=== PATIENT | male | born 1955 | race Caucasian/White ===

== ENCOUNTER 2018-06-12 06:59 | Day surgery (SDC) | payer BC ==
[~2018-06-12 06:59] MED LIST: AMLODIPINE10 MG PO; B COMPLE2 PO; LISINOPRIL10 MG PO; MAGNESIUM400 MG PO; MULTI VIT PO; OMEGA-3 KRILL500 MG PO; [UNRECOGNIZED DRUG - OTHER] PO
[2018-06-12] MEDS ORDERED: BL IBUPROFEN200 MG PO (10:50)
[2018-06-12] MEDS ORDERED: PERCOCET 5/325M1 TAB PO (10:50)
[2018-06-12 11:49] VITALS: BP 118/70
== END 2018-06-12 11:45 | disposition home or self-care (01) | DRG 352 ==
LOC: ORM 06:59
PROVIDERS: ATTEND Surgery
PROC: 0YUA0JZ Supplement Bilateral Inguinal Region with Synthetic Substitute, Open Approach (ICD-10-PCS; principal; 2018-06-12)
PROC: 0VBG0ZZ Excision of Left Spermatic Cord, Open Approach (ICD-10-PCS; 2018-06-12)
DX: K40.20 Bilateral inguinal hernia, without obstruction or gangrene, not specified as recurrent (principal); D17.6 Benign lipomatous neoplasm of spermatic cord; I10 Essential (primary) hypertension
CPT/HCPCS: C9290; J0131

== ENCOUNTER 2022-01-30 07:12 | Day surgery (SDC) | payer MEDICARE ==
[~2022-01-30] VITALS: Ht 182.9 cm; Wt 99.8 kg
[~2022-01-30 07:12] MED LIST changes: +BL IBUPROFEN200 MG PO; +HYDRALAZINE10 M2 PO; +HYDRO PO; +PERCOCET 5/325M1 TAB PO; +VALSARTAN PO
[2022-01-30 09:45] VITALS: BP 160/99
== END 2022-01-30 09:40 | disposition home or self-care (01) ==
LOC: ENDO 07:12
PROVIDERS: ATTEND Internal Medicine Gastroenterology
PROC: 0DBK8ZX Excision of Ascending Colon, Via Natural or Artificial Opening Endoscopic, Diagnostic (ICD-10-PCS; principal; 2022-01-30)
PROC: 0DBN8ZX Excision of Sigmoid Colon, Via Natural or Artificial Opening Endoscopic, Diagnostic (ICD-10-PCS; 2022-01-30)
PROC: 0DBP8ZX Excision of Rectum, Via Natural or Artificial Opening Endoscopic, Diagnostic (ICD-10-PCS; 2022-01-30)
DX: Z12.11 Encounter for screening for malignant neoplasm of colon (principal); D12.2 Benign neoplasm of ascending colon; K63.5 Polyp of colon; K62.1 Rectal polyp; K57.30 Diverticulosis of large intestine without perforation or abscess without bleeding; K64.8 Other hemorrhoids; I49.3 Ventricular premature depolarization